=== PATIENT | female | born 1955 | race Caucasian/White ===

== ENCOUNTER 2019-06-08 13:49 | Emergency (ER) | payer OTHER ==
[~2019-06-08] VITALS: Ht 160 cm; Wt 68.0 kg
[2019-06-08] MEDS ORDERED: PROBIOTIC1 EAC1 PO (14:12)
[2019-06-08] MEDS ORDERED: CRANBERRY400 M1 PO (14:12)
[2019-06-08] MEDS ORDERED: AMLODIPINE BESY10 MG PO (14:14)
--- OUTSIDE RECORDS SUMMARY | 2019-06-08 15:54 | XMS ---
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 Freda has no Care Guidelines for this patient. Armando VISIT COUNT (12 MO.) 1 [facility] Roman Lozano 1 HAILEE Proctor TOTAL 2 NOTE: Visits indicate total known visits. ED/C VISIT TRACKING (12 MO.) 06/08/2019 13:51 HAILEE [place] TYPE: Emergency COMPLAINT: - SHAKY, FINGERS NUMB, SWOLLEN FEET 05/06/2019 16:07 [facility] [place] TYPE: Emergency COMPLAINT: - NOT FEELING WELL PAST MONTH DIAGNOSES: - Other roasterman (current) drug therapy - Disorder involving the immune mechanism, unspecified - Allergy status to oth drug/meds/biol subst status - Pain in unspecified joint - Dehydration - Abnormal weight loss - Disease of digestive system, unspecified - Disorder involving the immune mechanism, unspecified - Urinary tract infection, site not specified - Disorientation, unspecified INPATIENT VISIT TRACKING (12 MO.) 05/06/2019 23:43 [facility] TYPE: Renal DIAGNOSES: - Hypokalemia - Unspecified severe protein-calorie malnutrition - Weakness - Hypomagnesemia - Encephalopathy, unspecified - Essential (primary) hypertension - Unspecified dementia without behavioral disturbance - Acute cystitis without hematuria - Altered mental status, unspecified - Hypo-osmolality and hyponatremia [email or web address]
== END 2019-06-08 16:21 | disposition home or self-care (01) ==
LOC: ED 13:49
DX: E87.6 Hypokalemia (principal); I10 Essential (primary) hypertension; Z88.6 Allergy status to analgesic agent; Z79.899 Other long term (current) drug therapy
CPT/HCPCS: 80053; 85025; 99284

== ENCOUNTER 2020-11-23 09:01 | Emergency (ER) | payer OTHER ==
[~2020-11-23] VITALS: Ht 160 cm; Wt 53.5 kg
[~2020-11-23 09:01] MED LIST: AMLODIPINE BESY10 MG PO; ASPIRIN EC325 MG PO; CENTRUM SILVER1 EAC5 PO; CRANBERRY400 M1 PO; EXCEDRIN EXTRA1 EAC1 PO; GABAPENTIN100 MG PO; OXYCODONE HCL5 MG PO; PROBIOTIC1 EAC1 PO; TURMERIC COMPL1 EACH PO; ULTRAM50 MG PO; XARELTO10 MG PO
--- NOTE | 2020-11-23 10:41 | EKG ---
[facility] [address] [facility] [place] [address] Signed Normal sinus rhythm Left axis deviation Voltage criteria for left ventricular hypertrophy Anterolateral infarct , age undetermined Abnormal ECG No previous ECGs available Confirmed by SHAUN HOWELL MD ([id number]) on 11/23/2020 10:41:12 AM Electronically Signed By: SHAUN HOWELL MD 11/23/20 1041 PATIENT NAME: PAOLA SANTANA MAR Electrocardiogram DATE OF : 59 PHYSICIAN: SHAUN HOWELL MD REPORT #: [id number] REPORT IS CONFIDENTIAL AND NOT TO BE RELEASED WITHOUT AUTHORIZATION
[2020-11-23] MEDS ORDERED: PRILOSEC OTC20 MG PO (11:53)
== END 2020-11-23 12:05 | disposition home or self-care (01) ==
LOC: ED 09:01
DX: R07.89 Other chest pain (principal); I10 Essential (primary) hypertension; Z79.899 Other long term (current) drug therapy
CPT/HCPCS: 71045; 71260; 80053; 83735; 84484; 85025; 93005; 93010; 99285-25; Q9967

== ENCOUNTER 2021-04-27 16:46 | Inpatient (IN) | payer OTHER ==
[~2021-04-27] VITALS: Ht 160 cm; Wt 57.7 kg
[~2021-04-27 16:46] MED LIST changes: +DICLOFENAC SODI75 MG PO; +HYDROXYCHLOROQ200 MG PO; +PRILOSEC OTC20 MG PO; +SENNA LAX8.6 MG PO; +VENTOLIN HFA18 GM INH
--- OUTSIDE RECORDS SUMMARY | 2021-04-27 16:48 | XMS ---
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 EFanny VISIT COUNT (12 MO.) 1 [facility] Kim Lozano [address] [place] [address] TOTAL 3 NOTE: Visits indicate total known visits. ED/UCC VISIT TRACKING (12 MO.) 04/27/2021 16:46 HAILEE De [place] TYPE: Emergency COMPLAINT: - [facility] COMPLAINT: - Rectal bleeding 2x 11/23/2020 09:03 [place]E [place] TYPE: Emergency COMPLAINT: - CHEST PAIN DIAGNOSES: - Essential (primary) hypertension - Chest pain, unspecified - Other chest pain - Precordial pain - Other custodial (current) drug therapy INPATIENT VISIT TRACKING (12 MO.) No inpatient visits to display in this time frame [email or web address]
--- NOTE | 2021-04-27 19:15 | NUR ---
PT REPORT RECEIVED FROM PAPER TESTERCASEY LAMB.
--- NOTE | 2021-04-27 19:30 | NUR ---
PT TRANSPORTED VIA STRETCHER BY [employer]ENSATION DIRECTOR FROM ER TO CCU. PT ARRIVES ON RN OFFICE. PT SELF TRANSFERRED FROM STRETCHER TO COMMODE UPON ARRIVAL. HEART RATE AT 110 BPM WITH EXERTION. PT TRANSFERED TO BED AFTER VOIDING, NOW BACK IN BED. ASSESSMENT COMPLETED AT THIS TIME. LUNGS SOUND CLEAR, BOWEL TONES HYPERACTIVE. PT APPEARS PALE AND STATES SHE FEELS GENERALIZED WEAKNESS. ESTABLISHED PLAN OF CARE. ALL QUESTIONS ANSWERED AT THIS TIME.
--- NOTE | 2021-04-27 20:41 | NUR ---
PT UP TO BSC TWICE. HEART RATE IN THE 110'S WITH EXERTION. TOTAL OF 400 MLS OF DARK RED STOOL MIXED WITH URINE. PT BACK IN BED, HEART RATE IN THE 90S AT REST. IV FLUIDS INFUSING. PT FINISHED FIRST BOTTLE OF GATORADE MIXED WITH MIRALAX. CALL LIGHT WITHNRE EACH. WILL CONTINUE TO MONITOR.
--- NOTE | 2021-04-27 21:06 | NUR ---
PT HAD 400 MLS OF DARK RED STOOL. PT STATES SHE FEELS INCREASINGLY WEAK. HER BLOOD PRESSURE HAS DECREASED INTO THE LOW 100'S SYSTOLICALLY. DR MAYNARD UPDATED ON PTS OUTPUT. BLOOD CONSENT SIGNED AND 2 UNITS PLACED ON STANDBY. CALL LIGHT WITHIN REACH. WILL CONTINUE TO CLOSELY MONITOR.
--- NOTE | 2021-04-27 21:30 | NUR ---
LEFT WRIST IV INFILTRATED. PULLED AT THIS TIME. RIGHT ARM IS SWOLLEN. PT STATES THAT SHE HAD A VEIN BLOW IN CT AT OTHER HOSPITAL AND THAT THE ARM WAS CONSIDERABLY MORE SWOLLEN AND HAS DECREASED IN SIZE. IV IN THAT ARM FLUSHES WELL. WILL MONITOR FOR PATENCY.
--- NOTE | 2021-04-27 22:27 | NUR ---
IV FLUID BOLUS FINISHED INFUSING. PT NOW RECIEVING CONTINUOUS FLUIDS AT 125 MLS/ HR (SEE EMAR). PT DRINKING SECOND BOTTLE OF MIRILAX IN GATORADE AT THIS TIME. DISCUSSED CARE PLAN AGIAN. CALL LIGHT WITHIN REACH. WILL CONTINUE TO CLOSELY MONITOR.
--- NOTE | 2021-04-27 22:55 | NUR ---
LAB IN ROOM AT THIS TIME TO DRAW PT'S BLOOD.
--- NOTE | 2021-04-28 00:16 | NUR ---
PT UP TO BATHROOM. ASSESSMENT COMPLETED. PT SKIN COLOR IS LESS PALE. STATES SHE FEELS LESS WEAK. STILL HAVING BLOODY STOOLS, BUT VOLUME HAS DECREASED AND MORE FORMED STOOL NOTED. DISCUSSED LAB RESULTS WITH PT, QUESTIONS ANSWERED. PT MADE NPO AT THIS TIME. CALL LIGHT WITHIN REACH.WILL CONTINUE TO MONITOR.
--- NOTE | 2021-04-28 01:00 | NUR ---
PT UP TO BSC. URINATED AND HAD SMALL BM. COLOR OF STOOL HAS BECOME LESS RED, AND MORE BROWN. PT DENIES ABDOMINAL CRAMPING, SHORTNESS OF BREATH, OR DISCOMFORT AT THIS TIME. CALL LIGHT WITHIN REACH. WILL CONTINUE TO MONITOR.
--- NOTE | 2021-04-28 05:11 | NUR ---
LAB IN TO DRAW AM LABS.
--- NOTE | 2021-04-28 05:30 | NUR ---
PT UP TO BSC, 100 MLS OF MOSTLY BROWN LIQUID STOOL MIXED WITH URINE. ASSISTED WITH PERICARE. PT BACK IN BED. STATES SHE FEELS MUCH BETTER THAN SHE DID LAST NIGHT. CALL LIGHT WITHIN REACH. DENIES ANY FURTHER NEEDS AT THIS TIME.
--- NOTE | 2021-04-28 06:14 | NUR ---
DR MAYNARD UPDATED ON PT CRITCAL H&H OF 6.3 AND 19.4, VERBAL ORDER TO TRANSFUSE 2 UNITS OF PRBCS OVER 2 HOURS EACH AND DRAW A REPEAT CBC AN HOUR AFTER SECOND UNIT HAS INFUSED. TWO MORE UNITS HAVE BEEN PLACED ON HOLD WITH LAB PER DR MAYNARD'S ORDER.
--- NOTE | 2021-04-28 06:35 | NUR ---
DISCUSSED PLAN TO INFUSE 2 UNITS OF PRBC FOR CRITICAL LOW LAB VALUES WITH PT. ALL QUESTIONS ANSWERED. 2 RNS CHECKED UNIT AT BEDSIDE. BLOOD NOW INFUSING. THIS RN REMAINS AT BEDSIDE
--- NOTE | 2021-04-28 06:52 | NUR ---
RATE OF BLOOD INCREASED TO 150 MLS/HR AT THIS TIME. PT DENIES ANY SYMPOTMS OF ADVERSE REACTION. THIS RN REMAINS AT BEDSIDE.
--- NOTE | 2021-04-28 08:00 | NUR ---
PATIENT ASSESSMENT COMPLETE. MEDICATIONS GIVEN ORDERED. PATIENT IS ALERT AND ORIENTED X4. LUNG SOUNDS ARE CLEAR THROUGHOUT. OXYGEN SATURATION IS 99% ON ROOM AIR. BREATHING IS EQUAL AND UNLABORED. RR IS 20. PATIENT HEART SOUNDS ARE WNL AND 90 BPM. PATIENT IS IN A SINUS RHYTHM. URINE OUTPUT IS YELLOW AND CLEAR. PATIENT HAS NOT HAD A STOOL FOR THIS RN YET. DENIES ANY PAIN. PATIENT HAS TENDERNESS TO THE LOWER ABDOMEN. PATIENT HAS A SURGICAL BANDAGE ON HER RIGHT KNEE. IT IS CLEAR AND INTACT. BLOOD PRODUCTS ARE RUNNING AT 300 MLS/HR. D5LR RUNNING IN THE OTHER LINE AT 125 MLS/HR. PATIENT UPDATED ON PLAN OF CARE. NO QUESTIONS AT THIS TIME. CALL LIGHT WITHIN REACH NO FUTHER NEEDS.
--- NOTE | 2021-04-28 09:00 | NUR ---
PATIENT BLOOD PRODUCTS STARTED AT 0835. PATIENT DENIES FEELING ANY BACK PAIN AND TEMP STAYED WITH WNL. BLOOD PRODUCTS START AT 75 MLS. BLOOD PRODUCTS INCREASED TO 300 MLS/HR. PATIENT IS RESTING IN BED. CALL LIGHT WITHIN REACH NO FUTHER NEEDS
--- NOTE | 2021-04-28 11:00 | NUR ---
LR ON STRAIGHT TUBING HUNG PATIENT WILL BEO GOING TO OR SOON FOR UPPER ENDOSCOPY/COLONOSOPY. PATIENT DENIES PAIN OF NAUSEA. NO ACTIVE BLEEDING NOTED. PATIENT IS RESTING WITH HOB ELEVATED.
--- NOTE | 2021-04-28 11:30 | NUR ---
CASEY CARNES FROM SURGERY CAME TO TRANSPORT PATIENT. PATIENT TRANSFERRED FROM BED TO [facility]. PATIENT TOLLERATED WELL.
--- NOTE | 2021-04-28 13:07 | NUR ---
04/28/21 1307 HarryEbonie 1255 PT ARRIVED TO PACU ON RA, PT WAKES AND IS REORIENTED TO PACU. 1302 PT ROLLS TO BACK AND PLAN OF CARE DISCUSSED. VSS.
--- NOTE | 2021-04-28 13:16 | CONS ---
[facility] [address] [place], [place] [address] Signed DATE OF CONSULTATION: 04/27/2021 CONSULTING PHYSICIAN: Syed Browne MD. REQUESTING PHYSICIANS: Dr. Jed Cook and Dr. Bia Maynard. PROBLEM: Hematochezia. HISTORY: This 65-year-old white woman is one week out from a right total knee replacement by Dr. Jerad Kraus. The patient had declined aspirin as a DVT prophylaxis postoperatively on the basis of aspirin causing her a "GI upset." On that basis, she was placed on a thrombin inhibitor. The medicine that she had was rivaroxaban (Xarelto) 10 mg daily. She was only to have a 10 days supply. This morning at approximately 11:00 a.m., she began having rather significant dark and mixed red rectal bleeding. This was not associated with pain. She had no associated hematemesis. She had additional bleeding and presented to the emergency room in [place], [place] where she was evaluated and found to have a hemoglobin of approximately 8.2. Transfusion was initiated of 2 units of packed red cells. She was life flighted to [facility] for further evaluation. She was seen by Dr. Cook where she had no further ongoing bleeding. Arrangements were made for admission to the hospital under the direction of the hospitalist service, Dr. Maynard. Her lab studies at 5:00 p.m. showed a hematocrit of 32.0 with a platelet count of 355, 000. Coag studies showed an INR of 1.29 with a PT of 15.7, a PTT of 30. Chem profile was essentially normal. Creatinine was 0.54. Liver enzymes were normal. Her COVID test is not in evidence in the labs at this time, I suspect it is being run. Plans were made for admission to the intensive care unit for further monitoring. She has remained hemodynamically stable. At presentation, vital signs showed a blood pressure of 123/74 with a pulse of 78 and a temperature of 98.9. A CT scan of the abdomen was noted though as of yet not yet performed. PAST MEDICAL HISTORY: Negative for prior gastrointestinal bleeding, abdominal surgery, ulcer surgery, or known diverticular disease. SOCIAL HISTORY: She lives in [place], [place]. She has been for 21 years; her at Electronically Signed By: SYED BROWNE MD 04/28/21 1316 PATIENT NAME: PAOLA SANTANA CONSULTATION DATE OF : 59 REPORT #: [id number] PHYSICIAN: SYED BROWNE MD PCP: OTILIA SIMPSON MD REPORT IS CONFIDENTIAL AND NOT TO BE RELEASED WITHOUT AUTHORIZATION [facility] [address] [place], [place] [address] Signed the local [employer] in [place], [place]. REVIEW OF SYSTEMS: She does feel slightly thirsty. She has no shortness of breath and is feeling calm and without anxiety. She has no chest pain. Denies any abdominal pain. She did have some abdominal cramping when passing blood. Her right knee has been recovering well. She has been using only a cane at home and ambulating well. PHYSICAL EXAMINATION: GENERAL: Pleasant white woman who does not look to be in severe distress at this time. VITAL SIGNS: Pulse is 78, blood pressure 122/73, respirations 13. NECK: Trachea is midline. HEENT: Mucous membranes are slightly dry. CHEST: Clear. HEART: Regular without murmur. ABDOMEN: Scaphoid and flat, nondistended. There is no evidence of ascites. There is no ecchymosis. Palpation throughout shows no sign of focal mass or tenderness. EXTREMITIES: Show mild edema of the right operated leg with small bandages applied on that site. The left leg shows no evidence of tenderness of the calf. She has no clinical evidence of DVT. LAB STUDIES: Are as previously noted, specifically white count of 8.6, hematocrit 32.0, platelets 355,000. PT 15.7, INR 1.29. Chem profile normal including a creatinine of 0.54. Liver enzymes normal. Albumin 3.3. ASSESSMENT: The patient has had significant gastrointestinal bleeding without associated hematemesis. This may represent a diverticular or other colonic source. She has undergone colonoscopy about a year ago she says in [place], [place] which was said to be negative. She has no family history of colon cancer or colitis. I would recommend allowance of clear liquids and a bowel prep to include MiraLAX and consideration for upper endoscopy and colonoscopy tomorrow. This to be under IV sedation. If she has profound bleeding and " " then endoscopic evaluation to be undertaken tonight if needed. I think that is unlikely, however. We are mindful that she is on a thrombin inhibitor rivaroxaban (Xarelto) which does not have a reliable reversal agent available to us at this time. Simple suspension of ingestion of a thrombin inhibitor would be most appropriate at this time. She does not have a reason for therapeutic anticoagulation, specifically pulmonary embolism, deep venous thrombosis and so on and it sounds as though a thrombin inhibitor was chosen as a backup approach considering her refusal to take aspirin which was a method recommended apparently. Electronically Signed By: SYED BROWNE MD 04/28/21 1316 PATIENT NAME: TELLECHPAOLA ARRIAGA CONSULTATION DATE OF : 59 REPORT #: [id number] PHYSICIAN: SYED BROWNE MD PCP: OTILIA SIMPSON MD REPORT IS CONFIDENTIAL AND NOT TO BE RELEASED WITHOUT AUTHORIZATION [address] [place], [place] [address] Signed The risk of bleeding, infection, and perforation related to upper endoscopy and colonoscopy were reviewed with her, she understands and wished to proceed. MD ISAI Rice/TOML /[id number] cc: MD Dar Bal MD Copies: BIA MAYNARD MD, BRADLEY MD ~ Electronically Signed By: SYED BROWNE MD 04/28/21 1316 PATIENT NAME: PAOLA SANTANA CONSULTATION DATE OF : 59 REPORT #: [id number] PHYSICIAN: SYED BROWNE MD PCP: OTILIA SIMPSON MD REPORT IS CONFIDENTIAL AND NOT TO BE RELEASED WITHOUT AUTHORIZATION
--- NOTE | 2021-04-28 13:40 | NUR ---
PATIENT BACK FROM SCOPE. PATIENT IS ALERT AND ORIENTED X4. BREATHING IS EQUAL AND UNLABORED. DENIES ANY PAIN AT THIS TIME. CALL LIGHT WITHIN REACH NO FUTHER NEEDS.
--- NOTE | 2021-04-28 14:18 | NUR ---
STOPPED TO SEE PATIENT AND SHE WAS GONE IN OR. WILL CHECK ANOTHER TIME.
--- NOTE | 2021-04-28 15:15 | NUR ---
REPORT RECIEVED FROM CASEY PLAZA PT STABLE AND WILL TRANSFER TO FLOOR VIA CHAIR.
--- NOTE | 2021-04-28 15:30 | NUR ---
PT ARRIVED TO [facility] FLOOR VIA CHAIR FROM CCU, VSS ON RA, PT DENIES ANY PAIN, NAUSEA, OR NEEDS AT THIS TIME.
--- NOTE | 2021-04-28 15:35 | NUR ---
PATIENT MOVED TO THE MEDICAL SURGICAL FLOOR. PATIENT REPORT WAS GIVEN TO CASEY THOMAS. PATIENT WAS TRANSERFERD BY CHAIR. BREATHING IS EQUAL AND UNLABORED.
--- NOTE | 2021-04-28 16:08 | NUR ---
SPOKE WITH PATIENT IN ROOM. PATIENT LIVES ALONE. HAS A FRIEND STAYING WITH HER AT THIS TIME AFTER HER KNEE SURGERY LAST WEEK. SHE WILL PROVIDE TRANSPORTATION. PATIENT HAS WALKING STICK SHE USES. SHE IS SIGNED UP FOR OUTPATIENT THERAPY ALREADY. SHE NORMALLY CAN DRIVE. SHE DENIES WORRY ABOUT AFFORDING MEDS/FOOD/UTILITIES. FEELS SHE NEEDS NOTHING TO GO HOME SAFELY. NO BARRIERS AT THIS TIME.
--- NOTE | 2021-04-28 16:35 | NUR ---
PT SITTING UP IN CHAIR W/ CALL LIGHT IN REACH PT DENIES ANY NEEDS AT THIS TIME
[2021-04-28] MEDS ORDERED: GABAPENTIN300 MG PO (17:57)
[2021-04-28] MEDS ORDERED: CURCUMIN10 GM PO (18:01)
[2021-04-28] MEDS ORDERED: COLLAGEN PLUS1 EACH PO (18:01)
[2021-04-28] MEDS ORDERED: EXCEDRIN EXTRA1 EAC1 PO (18:02)
--- NOTE | 2021-04-28 18:05 | NUR ---
PT SITTING UP IN CHAIR EATING DINNER, CALL LIGHT IN REACH, PT DENIES ANY NEEDS AT THIS TIME
--- NOTE | 2021-04-28 19:10 | NUR ---
Patient is getting ready to go to sleep. Vitals, I&Os are complete. Patient via bathroom Indep.
--- NOTE | 2021-04-28 19:26 | NUR ---
IN ROOM FOR REPORT, PT IS AWAKE IN BED. SHE DENIES NEEDS AT THIS TIME. CALL LIGHT IS CLOSE.
--- NOTE | 2021-04-28 22:20 | NUR ---
IN ROOM TO ASSESS PT. ADMINISTERED TYLENOL FOR 4/10 SORENESS/PAIN. PT IS SCRATCHING DRESSING AROUND R KNEE SURGICAL SITE A SMALL AMOUT OF REDNESS IS NOTED UNDER THE OPSITE ANTERIORLY. ASSISTED PT TO THE RESTROOM AND PROVIDED WARM BLANKET, VS TAKEN AND ENTERED. PT DENIES FURTHER NEEDS AT THIS TIME. SHE DENIES WEAKNESS/DIZZINESS. CALL LIGHT IS CLOSE.
--- NOTE | 2021-04-28 23:31 | NUR ---
PT IS AWAKE IN BED, SHE DENIES NEEDS AT THIS TIME. CALL LIGHT IS CLOSE.
--- NOTE | 2021-04-29 01:29 | NUR ---
PT RESTING WITH EYES CLOSED, SHE THEN OPENED HER EYES. PT DENIES NEEDS CALL LIGHT IS CLOSE.
--- NOTE | 2021-04-29 03:34 | NUR ---
PT IS RESTING WITH EYES CLOSED, RR IS EVEN AND NONLABORED. CALL LIGHT IS CLOSE.
--- NOTE | 2021-04-29 06:11 | NUR ---
VS TAKEN AND ENTERED. PT DENIES PAIN AT THIS TIME. PT IS NOT ITCHING AT KNEE OPSITE ANY LONGER. PT DENIES NEEDS AT THIS TIME. CALL LIGHT IS CLOSE.
--- NOTE | 2021-04-29 08:00 | NUR ---
shift report recieved from CASEY Marrero, pt resting in bed safely w/ call light in reach and eyes closed, RR even and unlabored.
--- NOTE | 2021-04-29 08:30 | NUR ---
PT SITTING UP IN CHAIR W/ CALL LIGHT IN REACH, EATING BREAKFAST, MORNING ASSESMENT COMPLETE NO SCHEDULED MEDS AT THIS TIME. PT DENIES ANY OTHER NEEDS AT THIS TIME.
--- NOTE | 2021-04-29 10:30 | NUR ---
PT SITTING UP IN CHAIR W/ CALL LIGHT IN REACH, PT GIVEN BP MEDS PER PROVIDER'S ORDERS. PT W/ DISCHARGE ORDERS IV'S REMOVED PER PROTCOL, CATH INTACT, NO REDNESS OR SWELLING NOTED, GAUZE AND COBAN APPLIED, AND PT EDUCATED ON POST IV SITE CARE. PT WAITING FOR FRIEND TO BRING HER CLOTHES
--- NOTE | 2021-04-29 10:35 | NUR ---
Patient was sitting in chair with call light is reach. Vitals, I&Os are done. Patient mentioned her knee pain and left IV irritation, RN was notified.
--- NOTE | 2021-04-30 15:08 | OR ---
[facility] [address] [place], [place] [address] Signed DATE OF OPERATION: 04/28/2021 SURGEON: Syed Browne MD PREOPERATIVE DIAGNOSES: 1. Hematochezia. 2. Anticoagulation with Xarelto (prophylactic for DVT) following total knee replacement (Dr. Dar Kraus). POSTOPERATIVE DIAGNOSES: 1. Normal upper endoscopy. 2. diverticular changes of the colon. No active bleeding. No evidence of blood in the ileum. PROCEDURES: 1. Esophagogastroduodenoscopy. 2. Total colonoscopy to cecum with intubation of ileum. ANESTHESIA: Intravenous sedation, propofol infusion, Rosendo Torres CRNA. INDICATIONS: This 65-year-old white woman is from [place], [place] and underwent knee replacement by Dr. Dar Kraus about a week ago. She declined aspirin as a DVT prophylaxis and was instead put on Xarelto (rivaroxaban). She had profound and persistent rectal bleeding essentially two days ago in [place] and underwent 2 units blood transfusion and then was transferred by life flight to [facility] where she was admitted by Dr. Maynard of the hospitalist service. Her hematocrit was found to be persistently low and she underwent two additional units of blood transfusion finished this morning. Her hemoglobin post transfusion was 9.5 or so. She has had no further bleeding in the past 12 hours or so, but did have some bleeding within the hospital timeframe, primarily dark blood per rectum and no hematemesis. She is admitted to undergo upper endoscopy and colonoscopy to better characterize the source of her bleeding. She understands the risks of bleeding, infection, and perforation. FINDINGS: Upper endoscopy showed no lesion of the esophagus, stomach, or duodenum to account for bleeding. Colonoscopy showed a well prepped bowel. She had numerous large and small diverticula Electronically Signed By: SYED BROWNE MD 04/30/21 1508 PATIENT NAME: PAOLA SANTANA OPERATIVE REPORT DATE OF : 59 REPORT #: [id number] PHYSICIAN: SYED BROWNE MD PCP: DEIDRA LOPEZ PA-C REPORT IS CONFIDENTIAL AND NOT TO BE RELEASED WITHOUT AUTHORIZATION [facility] [address] [place], [place] [address] Signed throughout the entire colon most dominantly in the sigmoid and left colon. There was no evidence of residual blood, blood clot or lesion that would account for bleeding. A small amount of blood was seen in one diverticulum in the proximal left colon, but again no active bleeding. The terminal ileum was visualized and showed no sign of blood proximally and no sign of terminal ileitis. PROCEDURE: The patient was brought to the surgical endoscopy suite and placed in lateral decubitus position, given intravenous sedation by the surgical services tech. A bite block was placed. An Olympus video upper endoscope was passed in the hypopharynx. The vocal cords were normal. Esophagus was examined and found to be normal. Scope was passed to the stomach, which was insufflated with air. Rugal folds were normal. There was no sign of blood or clot in the stomach. The pylorus was normal. Scope was passed through into the duodenum, which was normal. Scope was withdrawn. Retroflexed view was undertaken showing a small hiatal hernia. Careful withdrawal of scope showed no lesion to account for bleeding of the stomach or esophagus. Plans were then made for colonoscopy. Digital rectal examination was normal. An Olympus video colonoscope was passed in the rectum and manipulated throughout the colon noting numerous diverticular changes. Passage beyond the splenic flexure was initially challenging and required abdominal wall support, but was accomplished ultimately passing the scope to the cecum. The ileocecal valve was normal. Various manipulations were required ultimately to intubate the terminal ileum, although rather transiently. Visualization showed no sign of blood clot or inflammation. The scope was then withdrawn and careful withdrawal of the scope showed only numerous diverticula throughout the entire colon, most dominantly in the left side and sigmoid. This one diverticulum had the slightest amount of what appeared to be residual blood, but certainly no active bleeding at this time. Retroflexed view was normal except for internal hemorrhoids. The scope was removed and the patient was taken to the recovery room in good condition. 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 PLAN: Can re-initiate a regular diet. Would avoid any anticoagulation currently. I reviewed this with Dr. Maynard. Syed Browne MD Electronically Signed By: SYED BROWNE MD 04/30/21 1508 PATIENT NAME: PAOLA SANTANA OPERATIVE REPORT DATE OF : 59 REPORT #: [id number] PHYSICIAN: SYED BROWNE MD PCP: DEIDRA LOPEZ PA-C REPORT IS CONFIDENTIAL AND NOT TO BE RELEASED WITHOUT AUTHORIZATION [address] [address] Signed /[facility] /[id number] cc: MD Dar Bal MD Copies: BIA MAYNARD MD, BRADLEY MD ~ Electronically Signed By: SYED BROWNE MD 04/30/21 1508 PATIENT NAME: PAOLA SANTANA OPERATIVE REPORT DATE OF : 59 REPORT #: [id number] PHYSICIAN: SYED BROWNE MD PCP: DEIDRA LOPEZ PA-C REPORT IS CONFIDENTIAL AND NOT TO BE RELEASED WITHOUT AUTHORIZATION
== END 2021-04-29 11:40 | disposition home or self-care (01) | DRG 378 ==
LOC: ED 16:46 → MS 18:51 → CCU 18:51 → MS 04-28 15:35
PROVIDERS: Surgery; ADMIT Internal Medicine; ATTEND Internal Medicine
PROC: 30233N1 Transfusion of Nonautologous Red Blood Cells into Peripheral Vein, Percutaneous Approach (ICD-10-PCS; principal; 2021-04-27)
PROC: 0DJD8ZZ Inspection of Lower Intestinal Tract, Via Natural or Artificial Opening Endoscopic (ICD-10-PCS; 2021-04-28)
PROC: 0DJ08ZZ Inspection of Upper Intestinal Tract, Via Natural or Artificial Opening Endoscopic (ICD-10-PCS; 2021-04-28 10:58)
DX: K57.31 Diverticulosis of large intestine without perforation or abscess with bleeding (principal); D62 Acute posthemorrhagic anemia; I10 Essential (primary) hypertension; K44.9 Diaphragmatic hernia without obstruction or gangrene; K64.8 Other hemorrhoids; M06.9 Rheumatoid arthritis, unspecified; Z96.653 Presence of artificial knee joint, bilateral; Z79.01 Long term (current) use of anticoagulants
CPT/HCPCS: 36430; 80053; 85025; 85610; 85730; 86850; 86900; 86901; 86922; 99285; C9113; J0690; J2704; J7121; P9016

== ENCOUNTER 2021-05-01 16:25 | Emergency (ER) | payer OTHER ==
[~2021-05-01] VITALS: Ht 160 cm; Wt 57.6 kg
[~2021-05-01 16:25] MED LIST changes: +COLLAGEN PLUS1 EACH PO; +CURCUMIN10 GM PO; +GABAPENTIN300 MG PO
--- OUTSIDE RECORDS SUMMARY | 2021-05-01 16:28 | XMS ---
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 [place] - 2 Visits in 30 Days - [facility] DEIDRA LOPEZ Physician Current PHONE: [phone] Freda has no Care Guidelines for this patient. EFanny VISIT COUNT (12 MO.) [facility] [address] [place] [address] TOTAL 4 NOTE: Visits indicate total known visits. ED/UCC VISIT TRACKING (12 MO.) 05/01/2021 16:27 [facility] TYPE: Emergency COMPLAINT: - POST OP PAIN 04/27/2021 16:46 [facility] TYPE: Emergency COMPLAINT: - RECTAL BLEEDING 04/27/2021 11:45 [facility] [place] [facility] [place] TYPE: Emergency COMPLAINT: - Rectal bleeding 2x DIAGNOSES: - Rheumatoid arthritis, unspecified - Allergy status to other drugs, medicaments and biological substances - Other nursing home (current) drug therapy - Essential (primary) hypertension - Primary generalized (osteo)arthritis - Gastrointestinal hemorrhage, unspecified - Anxiety disorder, unspecified 11/23/2020 09:03 [facility] TYPE: Emergency COMPLAINT: - CHEST PAIN DIAGNOSES: - Essential (primary) hypertension - Chest pain, unspecified - Other chest pain - Precordial pain - Other nursing home (current) drug therapy INPATIENT VISIT TRACKING (12 MO.) 04/27/2021 18:51 [facility] TYPE: Medical Surgical COMPLAINT: - GI BLEED [email or web address]
[2021-05-01] MEDS ORDERED: TRIAMCINOLONE A15 G3 TOP (17:30)
[2021-05-01] MEDS ORDERED: DOXYCYCLINE HY100 MG PO (17:30)
== END 2021-05-01 17:45 | disposition home or self-care (01) ==
LOC: ED 16:25
DX: L30.9 Dermatitis, unspecified (principal); I10 Essential (primary) hypertension; Z79.899 Other long term (current) drug therapy
CPT/HCPCS: 99282

== ENCOUNTER 2023-06-05 05:40 | Day surgery (SDC) | payer MEDICARE, OTHER | END 2023-06-05 14:40 | disposition home or self-care (01) | LOC: DS 05:40 | PROC: 0SRB0JZ Replacement of Left Hip Joint with Synthetic Substitute, Open Approach (ICD-10-PCS; principal; 2023-06-05) | DX: M16.12 Unilateral primary osteoarthritis, left hip (principal); I10 Essential (primary) hypertension; Z88.8 Allergy status to other drugs, medicaments and biological substances ==